=== PATIENT | female | born 1950 | race African-American/Black ===

== ENCOUNTER 2019-12-27 22:33 | Emergency (ER) | payer MEDICARE, OTHER ==
[~2019-12-27] VITALS: Ht 162.6 cm; Wt 102.7 kg
--- NOTE | 2019-12-27 23:01 | PHYS DOC ---
Past History Past Medical History: Cancer, Diabetes, Hypertension, Other Past Medical History + COVID . 2019 Past Surgical History Mastectomy General Adult EDM: Chief Complaint: BACK PAIN OR INJURY HPI: HPI: '".. I got really bad chest pain tonight.. sharp.. comes around the Rt. side in my shoulder blade... I did have COVID lst Nov. they took me off quarantine on December 12.. and been doing well until to night. Ate Taiwanese about the 6 PM..maybe it was the Taiwanese food.. no one else ate it.. . Pain hurts with deep breaths and movement in my chest area.. " Patient is a 69 year old female who presents with above hx and complaints of chest pain on Rt. with cough and deep breaths. Patient had positive COVID testing 24 November and taken off self-isolation on December 12. Has been doing well until the development of pleuritic chest pain tonight. No history of previous DVTs or pulmonary embolism ligaments. No history of trauma. No history of recent travel outside the [place] area. No history of recent specific ill contacts. Patient normally follows with Dr. Juarez. Review of Systems: Review of Systems: Constitutional: Denies fever or chills Eyes: Denies change in visual acuity HENT: Denies nasal congestion or sore throat Respiratory: Denies cough or shortness of breath Cardiovascular: Complains of chest pain that is pleuritic GI: Denies abdominal pain, nausea, vomiting, bloody stools or diarrhea : Denies dysuria Musculoskeletal: Denies back pain or joint pain Integument: Denies rash Neurologic: Denies headache, focal weakness or sensory changes Endocrine: Denies polyuria or polydipsia Lymphatic: Denies swollen glands Psychiatric: Denies depression or anxiety Heart Score: HEART Score for Chest Pain: HEART Score for Chest Pain Response (Comments) Value History Slighlty/Non-Suspicious 0 ECG Nonspecific Repolarizatio 1 Age > 65 2 Risk Factors 1 or 2 Risk Factors 1 Troponin < Normal Limit 0 Total 4 Risk Factors: Risk Factors: DM, Current or recent (<one month) smoker, HTN, HLP, family history of CAD, obesity. Risk Scores: Score 0 - 3: 2.5% MACE over next 6 weeks - Discharge Home Score 4 - 6: 20.3% MACE over next 6 weeks - Admit for Clinical Observation Score 7 - 10: 72.7% MACE over next 6 weeks - Early Invasive Strategies Family History: Family History: Diabetes hypertension Current Medications: Current Meds: See nursing for home meds Allergies: Allergies: No known drug allergies Physical Exam: PE: Constitutional: no acute distress, non-toxic appearance. [] HENT: Normocephalic, atraumatic, bilateral external ears normal, oropharynx moist, no oral exudates, nose normal. [] Eyes: PERRLA, EOMI, conjunctiva normal, no discharge. [] Neck: Normal range of motion, no tenderness, supple, no stridor. [] Cardiovascular:Heart rate regular rhythm, no murmur [] Lungs & Thorax: Bilateral breath sounds equal apex with scattered wheezes on auscultation . The[] patient does have bilateral lower basilar crackles, some clearing with deep cough Abdomen: Bowel sounds normal, soft, no tenderness, no masses, no pulsatile masses. Obese. Skin: Warm, dry, no erythema, no rash. [] Back: No tenderness, no CVA tenderness. [] Extremities: No tenderness, no cyanosis, no clubbing, ROM intact, bilateral ankle edema. No cording appreciated Neurologic: Alert and oriented X 3, normal motor function, normal sensory function, no focal deficits noted. [] Psychologic: Affect anxious, judgement normal, mood normal. [] EKG: EKG: My interpretation EKG shows a sinus rhythm 87 bpm. Left axis and a fascicular block. No findings of acute STEMI with contralateral changes. [] Radiology/Procedures: Radiology/Procedures: [address] [address] IMAGING REPORT Signed PATIENT: ZACKARY CHAPA ACCOUNT: [id number] : 1950 LOCATION: ER AGE: 69 SEX: F EXAM STATUS: DEP ER ORD. PHYSICIAN: GÓMEZ ROLON MD REASON: cp PROCEDURE: CHEST PA & LATERAL PA lateral chest x-rays HISTORY: Chest pain. COMPARISON: CT chest November 28, 2019. FINDINGS: Heart size stable. Tortuosity and calcified plaque aortic arch. No pneumothorax. Surgical clips at the lower neck and right lower chest. No pleural effusions. Opacities at the lower lobes. Bones unremarkable. IMPRESSION: Bibasilar lower lobe opacities. Electronically signed by: Tariq Leonardo MD (12/28/2019 3:36 AM) [facility] [place] BY: TARIQ LEONARDO MD DATE: 12/28/19 0336 CC: GÓMEZ ROLON MD; CHELY DONAHUE ~ [][address] [address] IMAGING REPORT Signed PATIENT: ZACKARY CHAPA ACCOUNT: [id number] : 1950 LOCATION: ER AGE: 69 SEX: F EXAM STATUS: REG ER ORD. PHYSICIAN: GÓMEZ ROLON MD REASON: cp PROCEDURE: CT ANGIOGRAPHY CHEST CT angiography chest with contrast PQRS statement: CT scans at this facility use dose reduction including either automated exposure control, iterative reconstructions, and /or weight based radiation dosing via mA and kV modification when appropriate to reduce radiation dose to as low as reasonably achievable. HISTORY: Shortness of breath. Chest pain. TECHNIQUE: CT imaging of the chest with 3-D MIP reconstructions of the arteries with 100 mL Omnipaque 350 intravenous contrast. FINDINGS: Thoracic disc osteophytes. T4-T5 right facet spurring contribute to spinal canal stenosis. There are pulmonary artery emboli bilaterally largest clot burden at the right lower lobe with occlusion of some peripheral segmental arterial branches. No saddle embolus. Heart size normal. Hiatal hernia upper stomach. Aorta and esophagus unremarkable. No adenopathy. Right mastectomy and implant reconstruction. Calcified granulomas in the chest. Heterogeneous groundglass opacities and groundglass nodules right upper, middle and lower lobes, there are are also subpleural nodular densities at the right lower lobe superior segment measuring up to 1.5 cm size, and some groundglass nodules separately at the lingula and left lower lobe. Bones unremarkable. IMPRESSION: 1. Bilateral pulmonary artery emboli. 2. Bilateral pulmonary groundglass nodules, as well as subpleural solid nodules of the right lower lobe measuring 1.5 cm in size. These may represent areas of evolving pulmonary infarction. Infectious or inflammatory process is also a consideration. Pulmonary metastatic disease is not excluded. Consider follow-up CT imaging in 3 months to document this resolves. 3. Hiatal hernia of the upper stomach. FOR INTERNAL CODING PURPOSES Critical result: Findings discussed with GÓMEZ ROLON at 12/28/2019 1:37 AM. RESULT CODE: (C) Electronically signed by: Tariq Leonardo MD (12/28/2019 1:44 AM) [facility] [place] BY: TARIQ LEONARDO MD DATE: 12/28/19 0144 CC: GÓMEZ ROLON MD; CHELY DONAHUE ~ Course & Med Decision Making: Course & Med Decision Making Pertinent Labs and Imaging studies reviewed. (See chart for details) Discussed options of treatment with patient. Will start on Zithromax 500 mg and 250 daily for 10 days. Use MDI 2 puffs 4 times a day. Will treat pulmonary embolisms with Eliquis. Patient to follow-up primary care. Suspect this is a sequela of her previous COVID infection. Return if any concerns. Patient get a follow-up CT in 3 months. Discussed risk of atypical infection, or even re- infection with COVID. Hx. Breast Cancer, must also consider metastatic recurrence. Must follow-up. Would continue to wear face mask that covers both nose and mouth. Practice social distancing seen. Frequent handwashing. Return if any concerns. Impression: 1. Pleuritic chest pain 2. Bilateral pulmonary emboli 3. Morbid obesity 4. Diabetes [] Dragon Disclaimer: Riana Disclaimer: This electronic medical record was generated, in whole or in part, using a voice recognition dictation system. Departure Departure: Disposition: HOME/RESIDENCE PRIOR TO ADM Condition: STABLE Referrals: CHELY DONAHUE (PCP) Scripts Apixaban (ELIQUIS) 5 Mg Tablet 5 MG PO BID for pe for 10 Days, #20 TAB Prov: GÓMEZ ROLON MD 12/28/19 Apixaban (ELIQUIS) 2.5 Mg Tablet 2.5 MG PO bid for pe, #120 TAB Prov: GÓMEZ ROLON MD 12/28/19 Apixaban (Eliquis) 5 Mg Tab.ds.pk 10 MG PO BID for PE for 7 Days, #28 PKG Prov: GÓMEZ ROLON MD 12/28/19 Azithromycin (ZITHROMAX) 250 Mg Tablet 250 MG PO DAILY for ANTI-BIOTIC for 10 Days, #10 TAB 0 Refills Prov: GÓMEZ ROLON MD 12/28/19 Dragon Disclaimer This chart was dictated in whole or in part using Voice Recognition software in a busy, high-work load, and often noisy Emergency Department environment. It may contain unintended and wholly unrecognized errors or omissions. GÓMEZ ROLON MD Dec 27, 2019 23:01
[2019-12-27] MEDS ORDERED: KETOROLAC 30 MG/ML VIAL. IVP ONE (23:30)
[2019-12-27] MEDS ORDERED: IV RINGERS SOLUTION,LACTATED 1,000 ML IV SCH (23:30)
[2019-12-28] MEDS ORDERED: IOHEXOL 350 MG/ML 100 ML VIAL. IV ONE
[2019-12-28] MEDS ORDERED: CONTRAST GIVEN. MC PRN (00:15)
[2019-12-28 00:37] VITALS: BP 150/86
[2019-12-28 00:53] LABS: BASO % 0 % (0-3); EOS % 0 % (0-3); HEMATOCRIT 39.7 % (36.0-47.0); HEMOGLOBIN 13.2 g/dL (12.0-15.5); LYMPH # 1.5 x10^3/uL (1.0-4.8); LYMPH % 17 % (24-48); MEAN CORPUSCULAR HEMOGLOBIN 31 pg (25-35); MEAN CORPUSCULAR HGB CONC 33 g/dL (31-37); MEAN CORPUSCULAR VOLUME 94 fL (79-100); MONO % 12 % (0-9); NEUT # 6.3 x10^3uL (1.8-7.7); NEUT % 71 % (31-73); PLATELET COUNT 191 x10^3/uL (140-400); RED BLOOD COUNT 4.25 x10^6/uL (3.50-5.40); RED CELL DISTRIBUTION WIDTH 13.6 % (11.5-14.5); WHITE BLOOD COUNT 8.8 x10^3/uL (4.0-11.0)
[2019-12-28 00:54] LABS: BARBITURATES NEG (NEG); BENZODIAZEPINES NEG (NEG); CANNABINOIDS NEG (NEG); COCAINE NEG (NEG); METHADONE NEG (NEG); OPIATES NEG (NEG); PHENCYCLIDINE NEG (NEG)
[2019-12-28 01:04] LABS: ALBUMIN 3.4 g/dL (3.4-5.0); CALCIUM 8.4 mg/dL (8.5-10.1); CREATININE 0.9 mg/dL (0.6-1.0); DIRECT BILIRUBIN 0.2 mg/dL (0.0-0.2); GFR 75.6; MAGNESIUM 2.1 mg/dL (1.8-2.4); POTASSIUM 3.4 mmol/L (3.5-5.1); TOTAL BILIRUBIN 0.5 mg/dL (0.2-1.0); TOTAL PROTEIN 6.9 g/dL (6.4-8.2)
[2019-12-28 01:07] LABS: AMPHETAMINE/METHAMPHETAMINE NEG (NEG)
[2019-12-28 01:25] LABS: BACTERIA,URINE FEW /HPF (0-FEW); BILIRUBIN,URINE NEG (NEG); CLARITY,URINE CLEAR; COLOR,URINE YELLOW; GLUCOSE,URINE NEG (NEG); NITRITE,URINE NEG (NEG); RBC,URINE 0 /HPF (0-2); SQUAMOUS EPITHELIAL CELL,UR FEW /LPF; UROBILINOGEN,URINE >=8.0 mg/dL (0.2 mg/dL); WBC,URINE OCC /HPF (0-4)
--- NOTE | 2019-12-28 01:46 | RAD ---
CT angiography chest with contrast PQRS statement: CT scans at this facility use dose reduction including either automated exposure control, iterative reconstructions, and /or weight based radiation dosing via mA and kV modification when appropriate to reduce radiation dose to as low as reasonably achievable. HISTORY: Shortness of breath. Chest pain. TECHNIQUE: CT imaging of the chest with 3-D MIP reconstructions of the arteries with 100 mL Omnipaque 350 intravenous contrast. FINDINGS: Thoracic disc osteophytes. T4-T5 right facet spurring contribute to spinal canal stenosis. There are pulmonary artery emboli bilaterally largest clot burden at the right lower lobe with occlusion of some peripheral segmental arterial branches. No saddle embolus. Heart size normal. Hiatal hernia upper stomach. Aorta and esophagus unremarkable. No adenopathy. Right mastectomy and implant reconstruction. Calcified granulomas in the chest. Heterogeneous groundglass opacities and groundglass nodules right upper, middle and lower lobes, there are are also subpleural nodular densities at the right lower lobe superior segment measuring up to 1.5 cm size, and some groundglass nodules separately at the lingula and left lower lobe. Bones unremarkable. IMPRESSION: 1. Bilateral pulmonary artery emboli. 2. Bilateral pulmonary groundglass nodules, as well as subpleural solid nodules of the right lower lobe measuring 1.5 cm in size. These may represent areas of evolving pulmonary infarction. Infectious or inflammatory process is also a consideration. Pulmonary metastatic disease is not excluded. Consider follow-up CT imaging in 3 months to document this resolves. 3. Hiatal hernia of the upper stomach. FOR INTERNAL CODING PURPOSES Critical result: Findings discussed with GÓMEZ ROLON at 12/28/2019 1:37 AM. RESULT CODE: (C) Electronically signed by: Bharat Leonardo MD (12/28/2019 1:44 AM) [facility]
--- NOTE | 2019-12-28 01:50 | EKG ---
[facility] [address] [place] [address] Test Date: 2019-12-27 Test Time: 22:54:30 Pat Name: ZACKARY CHAPA Department: Room: Gender: F Certified Surgical Assistant: RIYA : 1950 Requested By: GÓMEZ ROLON Order Number: [id number] Reading MD: Measurements Intervals [place] Rate: 87 P: 48 [place]: 174 QRS: -33 QRSD: 84 T: 34 QT: 356 QTc: 434 Interpretive Statements SINUS RHYTHM ABNORMAL LEFT AXIS DEVIATION LEFT ANTERIOR FASCICULAR BLOCK ABNORMAL ECG RI6.02 No previous ECG available for comparison
[2019-12-28] MEDS ORDERED: APIX5TAB5 PO (02:11)
[2019-12-28] MEDS ORDERED: APIX5TAB3 PO (02:11)
[2019-12-28] MEDS ORDERED: APIX2.5T PO (02:11)
[2019-12-28] MEDS ORDERED: AZIT250T PO (02:11)
[2019-12-28] MEDS ORDERED: AZITHROMYCIN 250 MG TABLET. PO ONE (02:15)
[2019-12-28] MEDS ORDERED: ALBUTEROL SULFATE 8GM INHALER. INH ONE (02:15)
[2019-12-28] MEDS ORDERED: ENOXAPARIN ** NOTE DOSE ** SYRINGE SQ ONE (02:15)
--- NOTE | 2019-12-28 03:39 | RAD ---
PA lateral chest x-rays HISTORY: Chest pain. COMPARISON: CT chest November 28, 2019. FINDINGS: Heart size stable. Tortuosity and calcified plaque aortic arch. No pneumothorax. Surgical clips at the lower neck and right lower chest. No pleural effusions. Opacities at the lower lobes. Bones unremarkable. IMPRESSION: Bibasilar lower lobe opacities. Electronically signed by: Bharat eLonardo MD (12/28/2019 3:36 AM) [facility]
== END 2019-12-28 02:59 | disposition home or self-care (01) ==
LOC: ER 22:33
DX: R07.81 Pleurodynia (principal); I26.99 Other pulmonary embolism without acute cor pulmonale; E11.9 Type 2 diabetes mellitus without complications; E66.01 Morbid (severe) obesity due to excess calories; Z68.38 Body mass index [BMI] 38.0-38.9, adult
CPT/HCPCS: 36415; 71046; 71275; 80048; 80076; 80307; 81001; 82550; 83690; 83735; 83880; 84443; 84484; 85025; 85379; 85610; 85730; 93005; 94640; 96361; 96372; 96374; 99285; J0456; J1650; J1885; J7120; J7613; Q9967; 94664

== ENCOUNTER 2020-10-28 17:17 | Emergency (ER) | payer MEDICARE, OTHER ==
[~2020-10-28] VITALS: Ht 162.6 cm; Wt 98.8 kg
[~2020-10-28 17:17] MED LIST: APIX2.5T PO; APIX5TAB3 PO; APIX5TAB5 PO; AZIT250T PO
--- NOTE | 2020-10-28 17:47 | EKG ---
[address] [address] Test Date: 2020-10-28 Test Time: 17:31:29 Pat Name: ZACKARY CHAPA Department: Room: Gender: F Director Special Education: MARY LOU : 1950 Requested By: RENAE GOODWIN Order Number: [id number] Reading MD: Measurements Intervals [place] Rate: 68 P: 90 MT: 166 QRS: -11 QRSD: 80 T: 5 QT: 470 QTc: 505 Interpretive Statements SINUS RHYTHM ATRIAL PREMATURE COMPLEX(ES) LEFTWARD AXIS T ABNORMALITY IN ANTERIOR LEADS PROLONGED QT ABNORMAL ECG RI6.02 No previous ECG available for comparison
--- NOTE | 2020-10-28 17:49 | PHYS DOC ---
Past History Past Medical History: Cancer, Diabetes, Hypertension, Other Past Surgical History: Other Alcohol Use: None General Adult EDM: Chief Complaint: CHEST WALL PAIN HPI: HPI: Patient is a 70-year-old -Citizen Of [place] female who presents to the ER today for right sided chest pain. She reports the pain is located in her right breast. She rates the pain 6 out of 10. She describes it as an intermittent pain. The pain started last night. She describes the pain as a heaviness. No treatment prior to arrival. She reports that she feels it more when she moves but notes that nothing makes it worse or better. Patient does have a right mastectomy with an implant. She denies nausea, vomiting, shortness of breath, cough, fevers. She has a history of hypertension, hyperlipidemia, cancer, PE due to Covid. She is not currently on blood thinners. Review of Systems: Review of Systems: 14 body systems of the review of systems have been reviewed. See HPI for pertinent positive and negative responses, otherwise all other systems are negative, nonpertinent or noncontributory Allergies: Allergies: Allergies Coded Allergies Type Severity Reaction Last Updated Verified No Known Drug Allergies 12/27/19 No Physical Exam: PE: Constitutional: Well developed, well nourished, no acute distress, non-toxic appearance. [] HENT: Normocephalic, atraumatic Eyes: PERRL, conjunctiva normal, no discharge. [] Neck: Normal range of motion, no stridor Cardiovascular:Heart rate regular rhythm, no murmur [] Lungs & Thorax: Bilateral breath sounds clear to auscultation, right mastectomy, pain not reproducible, no palpable masses in right breast [] Abdomen: Bowel sounds normal, soft, no tenderness, no masses, no pulsatile masses. [] Skin: Warm, dry, no erythema, no rash. [] Back: Normal range of motion Extremities: No tenderness, no cyanosis, no clubbing, ROM intact, no edema. [] Neurologic: Alert and oriented X 3, normal motor function, normal sensory function, no focal deficits noted. [] Psychologic: Affect normal, judgement normal, mood normal. [] Current Patient Data: Vital Signs: Vital Signs Date Time Temp Pulse Resp B/P (MAP) Pulse Ox O2 Delivery O2 Flow Rate FiO2 10/28/20 17:29 98.2 82 16 163/83 97 Room Air EKG: EKG: EKG performed by ER staff at 1731 showed sinus rhythm with PACs, no STEMI as read by Dr. Benjamin 1736. [] Radiology/Procedures: Radiology/Procedures: PROCEDURE: CHEST AP ONLY XR CHEST 1V History: Reason: RIGHT BREAST PAIN X2 DAYS / Spl. Instructions: / History: Comparison: December 28, 2019 Findings: No consolidation or pleural effusion. Normal heart size. No pneumothorax. Small hiatal hernia. Impression: 1. No acute cardiopulmonary process. Electronically signed by: Krishna Avila DO (10/28/2020 6:00 PM) [facility] DICTATED AND SIGNED BY: KRISHNA AVILA DO DATE: 10/28/201758 CC: RENAE GOODWIN APRN; CHELY DONAHUE ~MTH0 0 [] PROCEDURE: CT ANGIOGRAPHY CHEST PQRS Compliance Statement: One or more of the following individualized dose reduction techniques were utilized for this examination: 1. Automated exposure control 2. Adjustment of the mA and/or kV according to patient size 3. Use of iterative reconstruction technique CTA CHEST 10/28/2020 6:48 PM INDICATION: Chest pain with history of PE COMPARISON: CT chest 12/28/2019 TECHNIQUE: Axial CT images of the chest were obtained after the intravenous administration of nonionic contrast. Coronal and sagittal reformats are provided. Maximum intensity projection images of the thoracic vasculature are provided. FINDINGS: The thyroid gland is normal in appearance. Calcified mediastinal and hilar lymph nodes are present. Moderate-sized hiatal hernia. No pathologically enlarged thoracic lymph nodes. The heart size is within normal limits. No significant pericardial effusion. Thoracic aorta is normal in course and caliber. Right breast prosthesis is noted. There is minimal fluid superficial to the ventral aspect of the prosthesis. There is adequate opacification of the pulmonary arterial system. There there are no filling defects within the pulmonary arterial system to suggest acute or chronic pulmonary embolus. 2 mm solid noncalcified pulmonary nodule identified at the left lung base (series 4, image 86) . This finding is stable and presumed benign. There are no pulmonary infiltrates. Bibasilar subsegmental atelectasis. There are no pleural effusions. No pulmonary vascular congestion or pneumothorax. Visualized portions of the upper abdomen are within normal limits. No suspicious osseous lesions are visualized. IMPRESSION: There is no evidence for acute or chronic pulmonary embolism. Previously seen embolus is resolved. There is bibasilar subsegmental atelectasis. Electronically signed by: Trent Claudio MD (10/28/2020 7:32 PM) [facility] DICTATED AND SIGNED BY: TRENT CLAUDIO MD DATE: 10/28/201924 CC: RENAE GOODWIN APRN; SARAHIAdonisCHELY D ~MTH0 0 Heart Score: C/O Chest Pain: Yes HEART Score for Chest Pain: HEART Score for Chest Pain Response (Comments) Value History Slighlty/Non-Suspicious 0 ECG Normal 0 Age > 65 2 Risk Factors >3 Risk Factors or Hx CAD 2 Troponin < Normal Limit 0 Total 4 Risk Factors: Risk Factors: DM, Current or recent (<one month) smoker, HTN, HLP, family history of CAD, obesity. Risk Scores: Score 0 - 3: 2.5% MACE over next 6 weeks - Discharge Home Score 4 - 6: 20.3% MACE over next 6 weeks - Admit for Clinical Observation Score 7 - 10: 72.7% MACE over next 6 weeks - Early Invasive Strategies Course & Med Decision Making: Course & Med Decision Making Pertinent Labs and Imaging studies reviewed. (See chart for details) [] Patient is a 70-year-old female being seen in the ER for right chest pain. Work-up in the ER consisted of blood work, chest x-ray, EKG. Patient has a history of hypertension, hyperlipidemia, PE due to Covid. Chest x-ray negative for any acute findings. Patient has a Wells score 4.5. A CT angio was ordered. CBC unremarkable. CMP unremarkable, negative troponin. CT scan of chest showed no acute findings. Patient's heart score is 4 due to her history of hypertension, hyperlipidemia, obesity and age. It is possible that patient is having musculoskeletal right breast pain. Patient reports that she is having pain in her right breast and given her history of breast cancer in her right mastectomy and implant, I suggested that she follow-up with her primary care provider for a mammogram or breast ultrasound. Patient was agreeable to plan. Patient advised to take Tylenol and ibuprofen at home and follow-up with the primary care provider. I discussed with patient all findings and diagnostic testing as well as the need to follow-up with PCP for further evaluation and treatment or return to the ER if any new or worsening symptoms. Strict return precautions were also discussed at length. Patient voiced understanding and agreement with the plan. Patient is hemodynamically stable at the time of disposition. Riana Disclaimer: Riana Disclaimer: This electronic medical record was generated, in whole or in part, using a voice recognition dictation system. Departure Departure: Impression: Primary Impression: Breast pain Disposition: HOME / SELF CARE / HOMELESS Condition: GOOD Referrals: CHELY DONAHUE (PCP) Patient Instructions: Chest Wall Pain Additional Instructions: You were seen in the ER today for right-sided chest pain. Your physical exam was reassuring. Your work-up in the ER was negative for any acute findings. At this time you are not having acute coronary syndrome. You need to follow-up with your primary care provider tomorrow regarding your ER visit. You can take Tylenol and ibuprofen for your pain. If you develop worsening chest pain, shortness of breath, cough, high fevers you need to return to the ER. EMERGENCY DEPARTMENT GENERAL DISCHARGE INSTRUCTIONS Thank you for coming to [facility] (ED) today and trusting us with you care. We trust that you had a positivie experience in our Emergency Department. If you wish to speak to the department management, you may call the director at [phone]. YOUR FOLLOW UP INSTRUCTIONS ARE FOLLOWS: 1. Do you have a private Doctor? If you do not have a private doctor, please ask for a resource list of physicians or clinics that may be able to assist you with follow up care. 2. The Emergency Physician has interpreted your x-rays. The X-Ray specialist will also review them. If there is a change in the findings, you will be notified in 48 hours when at all possible. 3. A lab test or culture has been done, your results will be reviewed and you will be notified if you need a change in treatment. ADDITIONAL INSTRUCTIONS AND INFORMATION: 1. Your care today has been supervised by a physician who is specially trained in emergency care. Many problems require more than one evaluation for a complete diagnosis and treatment. We recommend that you schedule your follow up appointment as recommended to ensure complete treatment of you illness or injury. If you are unable to obtain follow up care and continue to have a problem, or if your condition worsens, we recommend that you return to the ED. 2. We are not able to safely determine your condition over the phone nor are we able to give sound medical advice over the phone. For these safety reasons, if you call for medical advice we will ask you to come to the ED for further evaluation. 3. If you have any questions regarding these discharge instructions please call the ED at [phone]. SAFETY INFORMATION: In the interest of safety, wellness, and injury prevention; we encourage you to wear your sealbelt, if you smoke; quite smoking, and we encourage family to use a protective helmet for bicycling and other sporting events that present an increased risk for head injury. IF YOUR SYMPTOMS WORSEN OR NEW SYMPTOMS DEVELOP, OR YOU HAVE CONCERNS ABOUT YOUR CONDITION; OR IF YOUR CONDITION WORSENS WHILE YOU ARE WAITING FOR YOUR FOLLOW UP APPOINTMENT; EITHER CONTACT YOUR PRIMARY CARE DOCTOR, THE PHYSICIAN WHOSE NAME AND NUMBER YOU WERE GIVEN, OR RETURN TO THE ED IMMEDIATELY. RENAE GOODWIN GLASS EMBOSSER Oct 28, 2020 17:49
--- NOTE | 2020-10-28 18:02 | RAD ---
XR CHEST 1V History: Reason: RIGHT BREAST PAIN X2 DAYS / Spl. Instructions: / History: Comparison: December 28, 2019 Findings: No consolidation or pleural effusion. Normal heart size. No pneumothorax. Small hiatal hernia. Impression: 1. No acute cardiopulmonary process. Electronically signed by: Krishna Sierra DO (10/28/2020 6:00 PM) [facility]
[2020-10-28 18:27] LABS: BASO # 0.1 x10^3/uL (0.0-0.2); BASO % 1 % (0-3); EOS # 0.1 x10^3/uL (0.0-0.7); EOS % 1 % (0-3); HEMATOCRIT 39.5 % (36.0-47.0); HEMOGLOBIN 13.3 g/dL (12.0-15.5); LYMPH # 1.8 x10^3/uL (1.0-4.8); LYMPH % 24 % (24-48); MEAN CORPUSCULAR HEMOGLOBIN 32 pg (25-35); MEAN CORPUSCULAR HGB CONC 34 g/dL (31-37); MEAN CORPUSCULAR VOLUME 94 fL (79-100); MONO # 0.7 x10^3/uL (0.0-1.1); MONO % 9 % (0-9); NEUT # 5.2 x10^3uL (1.8-7.7); NEUT % 66 % (31-73); PLATELET COUNT 229 x10^3/uL (140-400); RED BLOOD COUNT 4.22 x10^6/uL (3.50-5.40); RED CELL DISTRIBUTION WIDTH 13.5 % (11.5-14.5); WHITE BLOOD COUNT 7.8 x10^3/uL (4.0-11.0)
[2020-10-28 18:57] LABS: CALCIUM 8.4 mg/dL (8.5-10.1); CREATININE 0.9 mg/dL (0.6-1.0); GFR 75.3; POTASSIUM 3.6 mmol/L (3.5-5.1)
[2020-10-28] MEDS ORDERED: IOHEXOL 350 MG/ML 100 ML VIAL. IV ONE (19:00)
[2020-10-28] MEDS ORDERED: CONTRAST GIVEN. MC PRN (19:00)
--- NOTE | 2020-10-28 19:34 | RAD ---
PQRS Compliance Statement: One or more of the following individualized dose reduction techniques were utilized for this examinat ion: 1. Automated exposure control 2. Adjustment of the mA and/or kV according to patient size 3. Use of iterative reconstruction technique CTA CHEST 10/28/2020 6:48 PM INDICATION: Chest pain with history of PE COMPARISON: CT chest 12/28/2019 TECHNIQUE: Axial CT images of the chest were obtained after the intravenous administration of nonioni c contrast. Coronal and sagittal reformats are provided. Maximum intensity projection images of the t horacic vasculature are provided. FINDINGS: The thyroid gland is normal in appearance. Calcified mediastinal and hilar lymph nodes are present. M oderate-sized hiatal hernia. No pathologically enlarged thoracic lymph nodes. The heart size is withi n normal limits. No significant pericardial effusion. Thoracic aorta is normal in course and caliber. Right breast prosthesis is noted. There is minimal fluid superficial to the ventral aspect of the pr osthesis. There is adequate opacification of the pulmonary arterial system. There there are no filling defects within the pulmonary arterial system to suggest acute or chronic pulmonary embolus. 2 mm solid noncalcified pulmonary nodule identified at the left lung base (series 4, image 86) . This finding is stable and presumed benign. There are no pulmonary infiltrates. Bibasilar subsegmental at electasis. There are no pleural effusions. No pulmonary vascular congestion or pneumothorax. Visualized portions of the upper abdomen are within normal limits. No suspicious osseous lesions are visualized. IMPRESSION: There is no evidence for acute or chronic pulmonary embolism. Previously seen embolus is resolved. There is bibasilar subsegmental atelectasis. Electronically signed by: Melonie Rosario MD (10/28/2020 7:32 PM) [facility]
[2020-10-28 20:00] VITALS: BP 157/89
== END 2020-10-28 20:00 | disposition home or self-care (01) ==
LOC: ER 17:17
DX: R07.89 Other chest pain (principal); N64.4 Mastodynia; E11.9 Type 2 diabetes mellitus without complications; I10 Essential (primary) hypertension
CPT/HCPCS: 36415; 71045; 71275; 80048; 84484; 85025; 93005; 99285; Q9967

== ENCOUNTER 2021-05-23 09:11 | Emergency (ER) | payer MEDICARE, OTHER ==
[~2021-05-23] VITALS: Ht 162.6 cm; Wt 91.0 kg
[2021-05-23] MEDS ORDERED: IV NORMAL SALINE 1,000ML 1,000 ML IV ONE (10:00)
[2021-05-23] MEDS ORDERED: diphenhydrAMINE 50 MG/ML VIAL IVP ONE (10:00)
[2021-05-23] MEDS ORDERED: PROCHLORPERAZINE 10 MG/2 ML VIAL. IV ONE (10:00)
[2021-05-23 10:23] LABS: BASO % 0 % (0-3); CALCIUM 8.7 mg/dL (8.5-10.1); CREATININE 0.8 mg/dL (0.6-1.0); EOS % 0 % (0-3); GFR 86.1; HEMATOCRIT 39.5 % (36.0-47.0); LYMPH # 1.5 x10^3/uL (1.0-4.8); LYMPH % 16 % (24-48); MEAN CORPUSCULAR HEMOGLOBIN 31 pg (25-35); MEAN CORPUSCULAR HGB CONC 33 g/dL (31-37); MEAN CORPUSCULAR VOLUME 93 fL (79-100); MONO # 0.8 x10^3/uL (0.0-1.1); MONO % 9 % (0-9); NEUT # 6.9 x10^3uL (1.8-7.7); NEUT % 74 % (31-73); PLATELET COUNT 246 x10^3/uL (140-400); POTASSIUM 3.3 mmol/L (3.5-5.1); RED BLOOD COUNT 4.24 x10^6/uL (3.50-5.40); RED CELL DISTRIBUTION WIDTH 13.3 % (11.5-14.5); WHITE BLOOD COUNT 9.2 x10^3/uL (4.0-11.0)
--- NOTE | 2021-05-23 10:25 | PHYS DOC ---
Past History Past Medical History: Cancer, Diabetes, Hypertension, Other Additional Past Medical Histor: PE, COVID in 2019 Past Surgical History: Cancer Surgery, Hysterectomy, Other Additional Past Surgical Histo: mastectomy, lump in thyroid Alcohol Use: None General Adult EDM: Chief Complaint: HEADACHE HPI: HPI: Patient is a 71-year-old female coming in from her primary care provider's office for headache for the past week and upper extremity tremors. Patient was seen 4 days ago by her primary care provider for nausea, vomiting, diarrhea, and headache. Symptoms resolved by the next day, she had a Covid PCR done which was negative. Patient's been taking Tylenol and Motrin. Also complaining of muscle aches in her legs. She denies any vision changes or photophobia. Denies any dental pain or rhinorrhea, does states she feels some fullness in her nose Review of Systems: Review of Systems: All other systems within normal limits except for as noted in the HPI Current Medications: Current Meds: Current Medications Medications (Trade) Dose Ordered Sig/Ashley Start Time Stop Time Status Last Admin Dose Admin Diphenhydramine HCl (Benadryl) 25 mg 1X ONCE 05/23/21 10:00 05/23/21 10:01 UNV Prochlorperazine Edisylate (Compazine) 10 mg 1X ONCE 05/23/21 10:00 05/23/21 10:01 UNV Sodium Chloride 1,000 ml @ 1,000 mls/hr 1X ONCE 05/23/21 10:00 05/23/21 10:59 UNV Allergies: Allergies: Allergies Coded Allergies Type Severity Reaction Last Updated Verified No Known Drug Allergies 12/27/19 No Physical Exam: PE: Constitutional: Well developed, well nourished, no acute distress, non-toxic appearance. [] HENT: Normocephalic, atraumatic, bilateral external ears normal, nose normal. [] Eyes: PERRLA, conjunctiva normal, no discharge. [] Neck: No rigidity, supple, no stridor. [] Cardiovascular: Regular rate and rhythm, brisk cap refill [] Lungs & Thorax: Non labored symmetric respirations, no tachypnea or respiratory distress [] Abdomen: Soft, nondistended. Skin: Warm, dry, no erythema, no rash. [] Back: Unremarkable Extremities: No deformities, range of motion grossly intact, no lower extremity edema [] Neurologic: Alert and oriented X 3, no focal deficits noted. [] Psychologic: Affect normal, judgement normal, mood normal. [] Current Patient Data: Vital Signs: Vital Signs Date Time Temp Pulse Resp B/P (MAP) Pulse Ox O2 Delivery O2 Flow Rate FiO2 05/23/21 09:25 98.7 71 18 161/93 (115) 98 EKG: EKG: [] Radiology/Procedures: Radiology/Procedures: [address] [address] IMAGING REPORT Signed PATIENT: ZACKARY CHAPA ACCOUNT: [id number] : 1950 LOCATION: ER AGE: 71 SEX: F EXAM STATUS: REG ER ORD. PHYSICIAN: WHITLEY CHÁVEZ MD REASON: HEAD AND NECK PAIN, HX DIABETES AND HTN PROCEDURE: CT ANGIOGRAPHY HEAD AND NECK CTA HEAD AND NECK W/WO CONTRAST History: HEAD AND NECK PAIN, HX DIABETES AND HTN . Subarachnoid hemorrhage. Technique: After bolus of intravenous contrast, volumetric CT data acquisition was acquired of the head and neck. Multiplanar reconstruction images to include MIP and 3-D reconstruction images are submitted. Any determination of stenosis is based on NASCET criteria. Comparison: CT 05/23/2021. Findings: Angiogram neck: Aortic arch: Normal caliber three-vessel arch. Common carotid arteries: No stenosis, occlusion or dissection. Internal carotid arteries: No stenosis, occlusion or dissection. External carotid arteries: Patent Vertebral arteries: No stenosis, occlusion or dissection. Angiogram head: ICA: There is a saccular aneurysm extending posterior inferiorly from the right ICA C7 segment measuring 0.5 x 0.5 x 0.5 cm (sagittal series 6 image 97; axial series 7 image 263). There is a small 2 mm infundibulum related to the posterior communicating origin at the posterior aspect of the distal right ICA. No aneurysm or significant stenosis in the left ICA. Previously MCA: No stenosis, occlusion or aneurysm. ROBBIE: No stenosis, occlusion or aneurysm. LEAD PONY RIDER: No stenosis, occlusion or aneurysm. Basilar artery: No stenosis, occlusion or aneurysm. Distal vertebral arteries: No stenosis, occlusion or aneurysm. Other: Previously described bilateral frontal subarachnoid and bilateral lateral intraventricular hemorrhages. Imaged lung apices are unremarkable. Soft tissues appear normal. No pathologic osseous lesions. Impression: 1. Distal right intracranial ICA saccular aneurysm measuring 5 mm. Redemonstrated intraventricular and subarachnoid hemorrhage. Findings discussed with WHITLEY CHÁVEZ MD at 05/23/2021 11:50 AM. FOR INTERNAL CODING PURPOSES RESULT CODE: (C) Exposure: One or more of the following individualized dose reduction techniques were utilized for this examination: 1. Automated exposure control 2. Adjustment of the mA and/or kV according to patient size 3. Use of iterative reconstruction technique. Electronically signed by: Guillermo Cooper MD (05/23/2021 11:51 AM) [id number] DICTATED AND SIGNED BY: GUILLERMO COOPER MD DATE: 05/23/21 1134 CC: WHITLEY CHÁVEZ MD; CHELY DONAHUE ~MTH0 0 [][place] [address] IMAGING REPORT Signed PATIENT: ZACKARY CHAPA ACCOUNT: [id number] : 1950 LOCATION: ER AGE: 71 SEX: F EXAM STATUS: REG ER ORD. PHYSICIAN: WHITLEY CHÁVEZ MD REASON: RIGHT SIDED FACIAL PAIN X 1 WEEK, NO KNOWN INJURY PROCEDURE: CT MAXILLOFACIAL WO CONTRAST Exam Date: 05/23/2021 10:[address] MAXILLOFACIAL WITHOUT CONTRAST, CT HEAD AND C-SPINE WO Indication: Reason: RIGHT SIDED FACIAL PAIN X 1 WEEK, NO KNOWN INJURY / Spl. Instructions: / History: . One or more of the following dose reduction techniques were utilized: *Automated exposure control (AEC) *Adjustment of mA and/or kV according to patient size *Use of iterative reconstruction technique *CT scan done according to ALARA, or ALARA/IMAGE GENTLY EXAMINATION: CT OF THE HEAD WITHOUT CONTRAST INDICATION: Trauma, head injury, headache; TECHNIQUE: Noncontrast helical axial CT images of the head were obtained. FINDINGS: There is small acute blood layering within the occipital horns of the lateral ventricles bilaterally. There is small acute subarachnoid blood along the frontal lobes near the falx bilaterally seen best on images 14-19 of series 2. There is increased density adjacent to the basilar artery posteriorly on the left which could be artifactual and related to bone/volume averaging, though basilar artery aneurysm is not excluded. The ventricles and sulci are prominent consistent with cerebral volume loss. Patchy ill-defined low attenuation areas in the subcortical and periventricular white matter bilaterally are consistent with microvascular disease. There is no evidence of mass effect, midline shift, or acute territorial infarct. No lesion of the skull base or the calvarium is seen. The visualized paranasal sinuses, mastoid air cells, and orbits are normal in appearance. IMPRESSION: Small acute bifrontal subarachnoid hemorrhages. Small acute blood layering w ithin the occipital horns of lateral ventricles bilaterally. Consider further evaluation with CT angiogram. There is increased density adjacent to the basilar artery which could be artifactual and related to bone/volume averaging, though basilar artery aneurysm is not excluded. This could also be further evaluated with CT angiogram. Volume loss and microvascular disease. Findings discussed with WHITLEY CHÁVEZ MD at 05/23/2021 10:34 AM. FOR INTERNAL CODING PURPOSES Critical result: RESULT CODE: (C) EXAMINATION: MAXILLOFACIAL CT WITHOUT CONTRAST CLINICAL INDICATION: Maxillofacial pain after trauma TECHNIQUE: Helical axial CT images through the maxillofacial bones were obtained without contrast. Source data were reconstructed into the sagittal and coronal planes. FINDINGS: There is no evidence of acute facial bone fracture. The mandible appears intact. Orbits appear intact. The nasal septum is intact and near midline. The visualized paranasal sinuses and mastoid air cells appear clear. IMPRESSION: No evidence of acute fracture of the maxillofacial bones. EXAMINATION: CT OF THE CERVICAL SPINE WITHOUT CONTRAST Clinical Indication: Cervical spine pain after trauma Technique: Thin cut helical axial CT images through the cervical spine were obtained without contrast on a multi-detector CT scanner. Source data was then reconstructed into sagittal and coronal planes. Findings: Alignment is maintained without spondylolisthesis. Vertebral body heights are maintained without acute fracture. Moderate multilevel degenerative changes are noted. No significant prevertebral soft tissue swelling is demonstrated. No severe osseous central canal stenosis is seen. Impression: No evidence of acute cervical spine fracture or subluxation. Electronically signed by: Pawan Lucas MD (05/23/2021 10:50 AM) [id number] DICTATED AND SIGNED BY: PAWAN LUCAS MD DATE: 05/23/21 1027 CC: WHITLEY CHÁVEZ MD; CHELY DONAHUE ~MTH0 0 Heart Score: C/O Chest Pain: No Risk Factors: Risk Factors: DM, Current or recent (<one month) smoker, HTN, HLP, family history of CAD, obesity. Risk Scores: Score 0 - 3: 2.5% MACE over next 6 weeks - Discharge Home Score 4 - 6: 20.3% MACE over next 6 weeks - Admit for Clinical Observation Score 7 - 10: 72.7% MACE over next 6 weeks - Early Invasive Strategies Course & Med Decision Making: Course & Med Decision Making Pertinent Labs and Imaging studies reviewed. (See chart for details) Discussed critical findings with patient's and began lowering patient's blood pressure with nicardipine. Patient will need to be transferred to higher level of care, patient requesting [facility] system since that is where she normally gets her care from. Please call to the transfer line, Dr. Horton will accept patient. [] Dragon Disclaimer: Dragon Disclaimer: This electronic medical record was generated, in whole or in part, using a voice recognition dictation system. Departure Departure: Impression: Primary Impression: Aneurysmal subarachnoid hemorrhage Disposition: SHORT TERM HOSPITAL Condition: CRITICAL Referrals: CHELY DONAHUE (PCP) WHITLEY CHÁVEZ MD May 23, 2021 10:25
[2021-05-23 10:36] LABS: ALBUMIN 3.7 g/dL (3.4-5.0); ALBUMIN/GLOBULIN RATIO 1.2 (1.0-1.7); C REACTIVE PROTEIN 11.6 mg/L (0-3.3); MAGNESIUM 1.9 mg/dL (1.8-2.4); PHOSPHORUS 3.6 mg/dL (2.6-4.7); TOTAL BILIRUBIN 1.3 mg/dL (0.2-1.0); TOTAL PROTEIN 6.7 g/dL (6.4-8.2)
--- NOTE | 2021-05-23 10:53 | RAD ---
Exam Date: 05/23/2021 10:[address] MAXILLOFACIAL WITHOUT CONTRAST, CT HEAD AND C-SPINE WO Indication: Reason: RIGHT SIDED FACIAL PAIN X 1 WEEK, NO KNOWN INJURY / Spl. Instructions: / History : . One or more of the following dose reduction techniques were utilized: *Automated exposure control (AEC) *Adjustment of mA and/or kV according to patient size *Use of iterative reconstruction technique *CT scan done according to ALARA, or ALARA/IMAGE GENTLY EXAMINATION: CT OF THE HEAD WITHOUT CONTRAST INDICATION: Trauma, head injury, headache; TECHNIQUE: Noncontrast helical axial CT images of the head were obtained. FINDINGS: There is small acute blood layering within the occipital horns of the lateral ventricles bilaterally. There is small acute subarachnoid blood along the frontal lobes near the falx bilaterally seen best on images 14-19 of series 2. There is increased density adjacent to the basilar artery posteriorly on the left which could be keesha factual and related to bone/volume averaging, though basilar artery aneurysm is not excluded. The ventricles and sulci are prominent consistent with cerebral volume loss. Patchy ill-defined low attenuation areas in the subcortical and periventricular white matter bilaterally are consistent with microvascular disease. There is no evidence of mass effect, midline shift, or acute territorial in farct. No lesion of the skull base or the calvarium is seen. The visualized paranasal sinuses, mastoi d air cells, and orbits are normal in appearance. IMPRESSION: Small acute bifrontal subarachnoid hemorrhages. Small acute blood layering within the occipital horn s of lateral ventricles bilaterally. Consider further evaluation with CT angiogram. There is increased density adjacent to the basilar artery which could be artifactual and related to b one/volume averaging, though basilar artery aneurysm is not excluded. This could also be further eduin luated with CT angiogram. Volume loss and microvascular disease. Findings discussed with WHITLEY CHÁVEZ MD at 05/23/2021 10:34 AM. FOR INTERNAL CODING PURPOSES Critical result: RESULT CODE: (C) EXAMINATION: MAXILLOFACIAL CT WITHOUT CONTRAST CLINICAL INDICATION: Maxillofacial pain after trauma TECHNIQUE: Helical axial CT images through the maxillofacial bones were obtained without contrast. So urce data were reconstructed into the sagittal and coronal planes. FINDINGS: There is no evidence of acute facial bone fracture. The mandible appears intact. Orbits appear intact . The nasal septum is intact and near midline. The visualized paranasal sinuses and mastoid air cells appear clear. IMPRESSION: No evidence of acute fracture of the maxillofacial bones. EXAMINATION: CT OF THE CERVICAL SPINE WITHOUT CONTRAST Clinical Indication: Cervical spine pain after trauma Technique: Thin cut helical axial CT images through the cervical spine were obtained without contrast on a multi-detector CT scanner. Source data was then reconstructed into sagittal and coronal planes. Findings: Alignment is maintained without spondylolisthesis. Vertebral body heights are maintained without acute fracture. Moderate multilevel degenerative change s are noted. No significant prevertebral soft tissue swelling is demonstrated. No severe osseous cent ral canal stenosis is seen. Impression: No evidence of acute cervical spine fracture or subluxation. Electronically signed by: Naga Lucas MD (05/23/2021 10:50 AM) [id number]
[2021-05-23] MEDS ORDERED: IOHEXOL 350 MG/ML 100 ML VIAL. IV ONE (11:00)
[2021-05-23] MEDS ORDERED: CONTRAST GIVEN. MC PRN (11:00)
[2021-05-23 11:34] LABS: SEDIMENTATION RATE 45 (0-25)
--- NOTE | 2021-05-23 11:53 | RAD ---
CTA HEAD AND NECK W/WO CONTRAST History: HEAD AND NECK PAIN, HX DIABETES AND HTN . Subarachnoid hemorrhage. Technique: After bolus of intravenous contrast, volumetric CT data acquisition was acquired of the he ad and neck. Multiplanar reconstruction images to include MIP and 3-D reconstruction images are submi tted. Any determination of stenosis is based on NASCET criteria. Comparison: CT 05/23/2021. Findings: Angiogram neck: Aortic arch: Normal caliber three-vessel arch. Common carotid arteries: No stenosis, occlusion or dissection. Internal carotid arteries: No stenosis, occlusion or dissection. External carotid arteries: Patent Vertebral arteries: No stenosis, occlusion or dissection. Angiogram head: ICA: There is a saccular aneurysm extending posterior inferiorly from the right ICA C7 segment measur ing 0.5 x 0.5 x 0.5 cm (sagittal series 6 image 97; axial series 7 image 263). There is a small 2 mm infundibulum related to the posterior communicating origin at the posterior aspect of the distal righ t ICA. No aneurysm or significant stenosis in the left ICA. Previously MCA: No stenosis, occlusion or aneurysm. ROBBIE: No stenosis, occlusion or aneurysm. CIVIL ENGINEERING PROJECT DESIGNER: No stenosis, occlusion or aneurysm. Basilar artery: No stenosis, occlusion or aneurysm. Distal vertebral arteries: No stenosis, occlusion or aneurysm. Other: Previously described bilateral frontal subarachnoid and bilateral lateral intraventricular hemorrhage s. Imaged lung apices are unremarkable. Soft tissues appear normal. No pathologic osseous lesions. Impression: 1. Distal right intracranial ICA saccular aneurysm measuring 5 mm. Redemonstrated intraventricular a nd subarachnoid hemorrhage. Findings discussed with WHITLEY CHÁVEZ MD at 05/23/2021 11:50 AM. FOR INTERNAL CODING PURPOSES RESULT CODE: (C) Exposure: One or more of the following individualized dose reduction techniques were utilized for thi s examination: 1. Automated exposure control 2. Adjustment of the mA and/or kV according to patient size 3. Use of iterative reconstruction technique. Electronically signed by: Guillermo Escalante MD (05/23/2021 11:51 AM) [id number]
[2021-05-23 12:30] LABS: BACTERIA,URINE 0 /HPF (0-FEW); CLARITY,URINE CLEAR; COLOR,URINE YELLOW; GLUCOSE,URINE NEG (NEG); NITRITE,URINE NEG (NEG); RBC,URINE OCC /HPF (0-2); SQUAMOUS EPITHELIAL CELL,UR OCC /LPF; WBC,URINE 0 /HPF (0-4)
[2021-05-23 13:15] VITALS: BP 149/84
[2021-05-23 13:40] LABS: INFLUENZA A PATIENT NEGATIVE (NEGATIVE); INFLUENZA B PATIENT NEGATIVE (NEGATIVE)
--- NOTE | 2021-05-23 20:37 | EKG ---
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
== END 2021-05-23 13:30 | disposition short-term general hospital (02) ==
LOC: ER 09:11
DX: I60.8 Other nontraumatic subarachnoid hemorrhage (principal); E11.9 Type 2 diabetes mellitus without complications; I10 Essential (primary) hypertension; Z20.822 Contact with and (suspected) exposure to COVID-19
CPT/HCPCS: 36415; 70450; 70486; 70496; 70498; 72125; 80053; 81001; 83735; 83880; 84100; 84484; 85025; 85651; 86140; 87428; 93005; 96361; 96365; 96375; 99285; C9803; J0780; J1200; J7030; J7050; Q9967; U0003